=== PATIENT | male | born 1970 | race African-American/Black ===

== ENCOUNTER 2018-07-31 22:57 | Emergency (ER) | payer OTHER ==
[~2018-07-31] VITALS: Ht 185.4 cm; Wt 95.7 kg
[2018-07-31] MEDS ORDERED: IBUPROFEN 400 MG TABLET. PO ONE (23:55)
[2018-07-31] MEDS ORDERED: HYDROcodone/APAP 5/325MG 1 TAB TABLET PO ONE (23:55)
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
[2018-08-01] MEDS ORDERED: IBUP-1060 PO (01:41)
[2018-08-01] MEDS ORDERED: HYDR-3164 PO (01:41)
[2018-08-01 02:18] VITALS: BP 155/60
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
== END 2018-08-01 02:00 | disposition home or self-care (01) ==
LOC: ER 22:57
DX: S22.31XA Fracture of one rib, right side, initial encounter for closed fracture (principal); S43.101A Unspecified dislocation of right acromioclavicular joint, initial encounter; V27.4XXA Motorcycle driver injured in collision with fixed or stationary object in traffic accident, initial encounter; Y93.89 Activity, other specified; Y92.410 Unspecified street and highway as the place of occurrence of the external cause; Y99.8 Other external cause status
CPT/HCPCS: 70450; 72125; 73030; 99284